=== PATIENT | male | born 1970 | race Caucasian/White ===

== ENCOUNTER 2018-11-09 14:02 | Emergency (ER) | payer OTHER, SELFPAY ==
[2018-11-09 14:03] VITALS: BP 140/87; PULSE 92; RESP 18; TEMP 36.7; O2SAT 97; BMI 33.4
--- NOTE | 2018-11-09 15:32 | ED.DCSUM_ITS ---
- ER Visit Summary Date of Service: 11/09/18 Chief Complaint: Lip laceration History of Present Illness: The patient is a 48 M presenting secondary to a lip laceration. Patient states that he was changing a tire when he accidentally struck himself in the face with tire iron. He denies loss of consciousness. Tetanus status is outside of 5 years. Physical Examination: Physical exam unremarkable except for patient's upper lip shows a full-thickness 2 cm laceration involving the vermilion border Test Results: None indicated Emergency Department Course and Treatment: Patient presented secondary to a lip laceration. Wound was anesthetized using lidocaine 2 cc 1% without epinephrine. It was copiously irrigated with saline, explored, there was no evidence of foreign material. A single subcutaneous 5-0 fast-absorbing Vicryl suture was placed to approximate the deep tissues, and then the vermilion border was approximated using 5-0 nylon suture, and a total of 4 skin sutures were used externally. Patient tolerated this well. Patient will follow up with primary care for suture removal. Disposition: Discharge Impression: 1. 2 cm lip laceration 2. Laceration repair by ED physician This note was generated with [employer] dictation software. It may contain incorrect words, spelling, and punctuation that were not noted in review of the chart prior to signing ED Disposition - Plan for ED Patient: Disposition: Home or Assisted Living Diagnosis: Lip laceration Instructions: ED Laceration Facial Sutr Tape Referrals: Cristo Denson III, MD [STAFF PHYSICIAN] - 3-5 Days suture removal
[2018-11-09] MEDS: Diphth,Pertuss(Acell),Tet Vac 0.5 ML Vial IM (15:39)
[2018-11-09 15:41] VITALS: PULSE 96; RESP 14; O2SAT 97
== END 2018-11-09 15:40 | disposition home or self-care (01) ==
PROVIDERS: Emergency Provider Emergency Medicine
DX: S01.511A Laceration without foreign body of lip, initial encounter (principal); W22.8XXA Striking against or struck by other objects, initial encounter; Y93.89 Activity, other specified; Y92.9 Unspecified place or not applicable; F12.90 Cannabis use, unspecified, uncomplicated; Z72.0 Tobacco use
CPT/HCPCS: 12011; 90715